=== PATIENT | male | born 1975 | race Caucasian/White ===

== ENCOUNTER 2017-03-28 14:48 | Emergency (ER) | payer SELFPAY ==
--- NOTE | ~2017-03-28 | CR108 ---
[facility] A Service of [facility] RADIOLOGY TEXT RESULTS PATIENT: FELY LEPE LOCATION: SED : 71 UNIT #: [id number] AGE: [address]: RAGHAV VELAZQUEZ SEX: M ORDER DR: [id number] [place] [id number] E MR#: [id number] Acc #: [id number] NAME: FELY LEPE. : 1975 SEX: M STUDY DATE/TIME: 03/28/2017 15:30 UNIT: SED ROOM: STUDY DESCRIPTION: CR Finger 2 View 2nd Lt Attending Physician: Raghav Velazquez Aprn Ordering Physician: Raghav Velazquez Aprn Primary Care Physician: Jimmy Katz M.D. MEDICAL IMAGING REPORT This report is preliminary unless electronic signature is present. EXAM Left second finger. HISTORY Left second finger pain for 2 weeks after trauma. FINDINGS Three views of the left second finger were obtained. The bones are normal. There is no fracture or foreign body. Note is made of the patient's fourth and fifth metacarpal bones are abnormality short. IMPRESSION 1. The left second finger appears normal. 2. Incidental note of very short fourth and fifth metacarpal bones. Dictated by... Edgar Willams M.D. THIS IS AN ELECTRONICALLY VERIFIED REPORT Edgar Wilalms M.D. at 03/30/2017 7:11 AM LLUVIA/reed TD: 03/29/2017 09:32 JOB #: [id number] MEDICAL IMAGING REPORT Page 1 of 1
[~2017-03-28 14:48] MED LIST: BACTRIM DS TABL1 TA1 PO; BENZONATATE PO; DIAZEPAM PO; DICLOFENAC PO; FLEXERIL PO; IBUPROFEN800 MG PO; KLONOPIN1 MG PO; NO MEDICATIONS; PHENERGAN SUPP25 MG PR; PHENERGAN25 M1 PO; TYLENOL #3 PO; VICODIN 5/1 TAB 5/50 PO
== END 2017-03-28 17:05 | disposition home or self-care (01) ==
LOC: SED 14:48
DX: S61.211A Laceration without foreign body of left index finger without damage to nail, initial encounter (principal); F17.210 Nicotine dependence, cigarettes, uncomplicated; W22.8XXA Striking against or struck by other objects, initial encounter; Y92.009 Unspecified place in unspecified non-institutional (private) residence as the place of occurrence of the external cause
CPT/HCPCS: 29130; 73140; 99283

== ENCOUNTER 2017-06-10 15:27 | Emergency (ER) | payer SELFPAY ==
[~2017-06-10] VITALS: Ht 177.8 cm; Wt 61.2 kg
--- NOTE | ~2017-06-10 | CR141 ---
[facility] A Service [facility] RADIOLOGY TEXT RESULTS PATIENT: FELY LEPE LOCATION: SED : 73 UNIT #: [id number] AGE: [address]: RAGHAV VELAZQUEZ SEX: M ORDER DR: [id number] [place] [address] [id number] E MR#: [id number] Acc #: [id number] NAME: FELY LEPE. : 1975 SEX: M STUDY DATE/TIME: 06/10/2017 16:01 UNIT: SED ROOM: STUDY DESCRIPTION: CR Hand Min 3 Views Lt Attending Physician: Raghav Velazquez Aprn Ordering Physician: Louisa Ulrich Pa-C Primary Care Physician: Jimmy Katz M.D. MEDICAL IMAGING REPORT This report is preliminary unless electronic signature is present. EXAM Left hand, 3 views COMPARISON 3 views of the left wrist on the same date. INDICATION 41-year-old male with left hand pain after using a saw today. FINDINGS The fourth and fifth metacarpals are congenitally short. Bones are anatomically aligned. No evidence of acute fracture. Chronic appearing calcium density is seen at the radial aspect of the trapezium measuring up to 2 mm. IMPRESSION 1. No evidence of acute fracture or dislocation. 2. 2 mm calcium density appearing to be chronic, adjacent to the trapezium at the radial aspect. This may reflect the sequela of remote trauma. This is nonspecific. 3. 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 Dictated by... Chandan Rodriguez M.D. THIS IS AN ELECTRONICALLY VERIFIED REPORT Chandan Rodriguez M.D. at 06/15/2017 6:21 PM RHODA/poncho TD: 06/11/2017 03:59 JOB #: [id number] [facility] A Service of [facility] RADIOLOGY TEXT RESULTS PATIENT: FELY LEPE LOCATION: SED : 73 UNIT #: [id number] AGE: [address]: RAGHAV VELAZQUEZ SEX: M ORDER DR: MEDICAL IMAGING REPORT Page 1 of 1
--- NOTE | ~2017-06-10 | CR281 ---
[facility] A Service of [facility] RADIOLOGY TEXT RESULTS PATIENT: FELY LEPE LOCATION: SED : [birth year] UNIT #: [id number] AGE: [address]: RAGHAV VELAZQUEZ SEX: M ORDER DR: [id number] [place] [address] [id number] E MR#: [id number] Acc #: [id number] NAME: FELY LEPE. : 1975 SEX: M STUDY DATE/TIME: 06/10/2017 16:01 UNIT: SED ROOM: STUDY DESCRIPTION: CR Wrist Min 3 View Lt Attending Physician: Raghav Velazquez Aprn Ordering Physician: Louisa Ulrich Pa-C Primary Care Physician: Jimmy Katz M.D. MEDICAL IMAGING REPORT This report is preliminary unless electronic signature is present. EXAM Left wrist, 3 views COMPARISON 3 views of the left hand on the same date. INDICATION 41-year-old male with left wrist pain after using a saw today. FINDINGS Bones are anatomically aligned. 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 No evidence of acute fracture. Chronic appearing calcium density at the radial aspect of the trapezium, possibly due to remote injury. IMPRESSION 1. No acute fracture or dislocation of left wrist. 2. 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 3. A chronic-appearing 1-2 mm calcium density is seen at the radial aspect of the trapezium, favored to be due to remote trauma or possibly idiopathic. Dictated by... Chandan Rodriguez M.D. THIS IS AN ELECTRONICALLY VERIFIED REPORT Chandan Rodriguez M.D. at 06/15/2017 6:21 PM RHODA/poncho TD: 06/11/2017 03:53 JOB #: [id number] [facility] A Service of [facility] RADIOLOGY TEXT RESULTS PATIENT: FELY LEPE LOCATION: SED : 73 UNIT #: [id number] AGE: [address]: RAGHAV VELAZQUEZ SEX: M ORDER DR: MEDICAL IMAGING REPORT Page 1 of 1
== END 2017-06-10 17:09 | disposition home or self-care (01) ==
LOC: SED 15:27
DX: S60.212A Contusion of left wrist, initial encounter (principal); X50.1XXA Overexertion from prolonged static or awkward postures, initial encounter; Y92.69 Other specified industrial and construction area as the place of occurrence of the external cause; F17.200 Nicotine dependence, unspecified, uncomplicated; F41.9 Anxiety disorder, unspecified
CPT/HCPCS: 29280; 73110; 73130; 99283